=== PATIENT | male | born 1980 | race Caucasian/White ===

== ENCOUNTER 2016-10-21 12:43 | Emergency (ER) | payer MEDICAID, OTHER ==
[~2016-10-21] VITALS: Ht 190.5 cm; Wt 95.3 kg
[~2016-10-21 12:43] MED LIST: AMOX500C2 PO; AZIT-21 PO; BPR75T PO; BUSP10TA95 PO; CODE118S2 PO; DOXY-233 PO; HYDR-1231 PO; IBP800T PO; SULF1TAB38 PO; TRAZ150T42 PO
[2016-10-21] MEDS ORDERED: LIDOCAINE 1% INJ 20 ML (XYLOCAINE) VIAL ONE (12:49)
[2016-10-21] MEDS ORDERED: CEPH-507 PO (13:09)
--- NOTE | 2016-10-21 13:09 | ED Upper Extremity ---
General Chief Complaint: Laceration Stated Complaint: LACERATION TO RT WRIST Nursing Triage Note: WAS MOVING A GLASS TABLE WHEN IT BROKE LACERATION TO R WRIST. Nursing Sepsis Screen: No Definite Risk Source: patient Exam Limitations: no limitations History of Present Illness Time seen by provider: 13:04 Initial Comments to ER with laceration of the radial side of the right wrist. His occurred just prior to arrival he was loading a glass tabletop, the glass tabletop split in half and lacerated his wrist. He can still fully extend the right thumb. Tetanus was updated last year he states. Onset: just prior to arrival Severity: moderate Pain/Injury Location: right wrist Modifying Factors: Worse With Movement Allergies and Home Medications Allergies Coded Allergies: morphine (Unverified Allergy, Mild, VOMITING, 10/11/14) Home Medications Amoxicillin 500 Mg Capsule, 1 EACH PO TID, #20 Prescribed by: TANNER KUMAR on 10/11/14 0133 Hydrocodone Bit/Acetaminophen 1 Tab Tablet, 1-2 TAB PO Q6H PRN for PAIN, #10 Prescribed by: TANNER KUMAR on 10/11/14 0133 Constitutional: see HPI EENTM: see HPI Respiratory: no symptoms reported Cardiovascular: no symptoms reported Genitourinary: no symptoms reported Musculoskeletal: no symptoms reported Skin: see HPI Psychiatric/Neurological: No Symptoms Reported Past Smzfnph-Rxzjce-Visvtc Hx Patient Social History Alcohol Use: Denies Use Recreational Drug Use: No Smoking Status: Current Everyday Smoker Recent Foreign Travel: No Contact w/Someone Who Travel: No Recent Infectious Disease Expo: No Immunizations Up To Date Tetanus Booster (TDap): Less than 5yrs Date of Influenza Vaccine: Jan 07, 2014 Seasonal Allergies Seasonal Allergies: No Surgeries HX Surgeries: Yes Surgeries: Orthopedic Respiratory Hx Respiratory Disorders: No Cardiovascular Hx Cardiac Disorders: No Neurological Hx Neurological Disorders: No Reproductive System Hx Reproductive Disorders: No Sexually Transmitted Disease: No HIV/AIDS: No Genitourinary Hx Genitourinary Disorders: No Gastrointestinal Hx Gastrointestinal Disorders: No Musculoskeletal Hx Musculoskeletal Disorders: No Endocrine Hx Endocrine Disorders: No HEENT HX ENT Disorders: No Cancer Hx Cancer: No Psychosocial Hx Psychiatric Problems: No Integumentary HX Skin/Integumentary Disorder: No Blood Transfusions Hx Blood Disorders: No Physical Exam Vital Signs Vital Sign - Last 12Hours 10/21/16 12:57 Temp 98.0 Pulse 82 Resp 18 B/P (MAP) 141/82 Pulse Ox 98 O2 Delivery Room Air Capillary Refill : Less Than 3 Seconds General Appearance: WD/WN, no apparent distress HEENT: PERRL/EOMI, normal ENT inspection Neck: non-tender, full range of motion Respiratory: no respiratory distress, no accessory muscle use Gastrointestinal: non tender, soft Shoulder: normal inspection, non-tender Elbow/Forearm: normal inspection, non-tender, Right Wrist: Yes non-tender, Yes pain (there is a 1.5 cm laceration with depth down to the extensor tendon but not into or through the extensor tendon. He maintains full ability to extend the thumb as in thumbs up sign. Distally he is neurovascularly intact.) Neurologic/Psychiatric: alert, normal mood/affect, oriented x 3 Skin: normal color, warm/dry Laceration Repair : Wound Location: Upper Extremities Wound Length (cm): 1.5 Wound's Depth, Shape: sub Q Wound Explored: clean Irrigated w/ Saline (ccs): 50 Anesthesia: 1% Lidocaine Volume Anesthetic (ccs): 2 Suture: Prolene Suture Size: 5-0 Number of Sutures: 5 Layer Closure?: 1 Number Deep Layer Sutures: 0 Progress Wound anesthetized with 2 L 1 percent lidocaine without epinephrine. Wound then scrubbed with chlorhexidine/saline solution. Wound then irrigated with 40 mL of the same. Closed with 5 simple interrupted sutures size 5-0 Prolene. Progress/Results/Core Measures Results/Orders My Orders Orders - DAY PARIS APRN Lidocaine 1% Injection (Xylocaine 1% Inj (10/21/16 13:15) Cephalexin Capsule (Keflex Capsule) (10/21/16 13:15) Vital Signs/I&O Vital Sign - Last 12Hours 10/21/16 12:57 Temp 98.0 Pulse 82 Resp 18 B/P (MAP) 141/82 Pulse Ox 98 O2 Delivery Room Air Blood Pressure Mean: 101 Departure Impression Impression: Primary Impression: Laceration Disposition: 01 HOME, SELF-CARE Condition: Stable Departure-Patient Inst. Decision time for Depature: 13:08 Referrals: NO,LOCAL PHYSICIAN (PCP/Family) Primary Care Physician Patient Instructions: Laceration Repair With Stitches (DC) Add. Discharge Instructions: 1. You may allow water to run over the stitches starting tonight such as in the shower or under the sink but do not soak it in water such as a hot tub, bath tub, swimming pool until stitches of been removed. Return to ER for any sign of infection such as redness or swelling. He should return to the emergency room otherwise in 7-10 days to have the stitches removed. All discharge instructions reviewed with patient and/or family. Voiced understanding. Scripts Cephalexin (Keflex) 500 Mg Capsule 500 MG PO TID, #10 CAP Prov: DAY PARIS APRN 10/21/16 DAY PARIS APRN Oct 21, 2016 13:09
[2016-10-21 13:11] VITALS: BP 141/82
[2016-10-21] MEDS ORDERED: CEPHALEXIN 250 MG (KEFLEX) CAP PO ONE (13:15)
[2016-10-21] MEDS ORDERED: LIDOCAINE 1% INJ 20 ML (XYLOCAINE) VIAL INJ ONE (13:15)
--- OUTSIDE RECORDS SUMMARY | 2016-10-25 07:09 | XMS REPORT ---
Author Author LETHA NORTH Organization [employer] Address Unknown Phone Unavailable Care Team Providers Care Supervisor Nutritional Yeast Name Role Phone LETHA NORTH CP Unavailable Allergies, Adverse Reactions, Alerts Substance Reaction Event Type Morphine Sulfate vomitting Drug Allergy Problems Problem Type Condition Code Onset Dates Condition Status Problem Fever, unspecified 780.60 Active Problem Syncope and collapse 780.2 Active Problem Unspecified myalgia and myositis 729.1 Active Assessment Spider bite [id number] Active Problem Lumbago 724.2 Active Problem Postnasal drip 784.91 Active Problem Acute upper respiratory infections of unspecified site 465.9 Active Problem Other malaise and fatigue 780.79 Active Problem Nausea alone 787.02 Active Problem Diarrhea 787.91 Active Problem Intestinal infection due to other organism, NEC 008.8 Active Problem Acute bronchitis 466.0 Active Medications Medication Code System Code Instructions Start Date End Date Status Dosage Ibuprofen NDC 0 200 mg orally PRN 1 Bactrim DS NVC [address]-47 800-160 MG Orally 2 times a day Feb 26, 2015 Mar 08, 2015 1 tablet Procedures Procedure Coding System Code Date Office Visit, Est Pt., Level 3 CPT-4 05184 Feb 26, 2015 Vital Signs Date/Time: Feb 26, 2015 Temperature 98.5 F Weight 184.2 lbs Height 75 in BMI 23.02 Index Blood Pressure Diastolic 74 mmHg Blood Pressure Systolic 110 mmHg Cardiac Monitoring Heart Rate 64 bpm Results No Known Results Summary Purpose [employer] Submission
--- OUTSIDE RECORDS SUMMARY | 2016-10-25 07:09 | XMS REPORT ---
Author Author MALIK GUILLEN Organization [employer] Address Unknown Phone Unavailable Care Team Providers Care [employer] Tractor Operator Name Role Phone MALIK GUILLEN CP Unavailable Allergies, Adverse Reactions, Alerts Substance Reaction Event Type Morphine Sulfate vomitting Drug Allergy Problems Problem Type Condition ICD-9 Code Onset Dates Condition Status Problem Fever, unspecified 780.60 Active Problem Syncope and collapse 780.2 Active Problem Unspecified myalgia and myositis 729.1 Active Assessment Acute foreign body of ear canal 931 Active Problem Lumbago 724.2 Active Problem Postnasal drip 784.91 Active Problem Acute upper respiratory infections of unspecified site 465.9 Active Problem Other malaise and fatigue 780.79 Active Problem Nausea alone 787.02 Active Problem Diarrhea 787.91 Active Problem Intestinal infection due to other organism, NEC 008.8 Active Problem Acute bronchitis 466.0 Active Medications Medication Code System Code Instructions Start Date End Date Status Dosage Ofloxacin [facility] [address]-21 0.3 % Otic Once a day Dec 30, 2014 Jan 06, 2015 10 drops into affected ear Procedures Procedure Coding System Code Date Office Visit, Est Pt., Level 4 CPT-4 80031 Dec 30, 2014 EAR IRRIGATION CPT-4 30678 Dec 30, 2014 Vital Signs Date/Time: Dec 30, 2014 Temperature 97.0 F Weight 188.7 lbs Height 75 in BMI 23.58 Index Blood Pressure Diastolic 76 mmHg Blood Pressure Systolic 112 mmHg Cardiac Monitoring Heart Rate 70 bpm Results No Known Results Summary Purpose [employer] Submission
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
--- OUTSIDE RECORDS SUMMARY | 2016-10-25 07:09 | XMS REPORT ---
Author Author BURKE CORDOBA Organization [employer] Address Unknown Phone Unavailable Care Team Providers Care Navy Airspace Officer Name Role Phone BURKE CORDOBA CP Unavailable Allergies, Adverse Reactions, Alerts Substance Reaction Event Type Morphine Sulfate vomitting Drug Allergy Problems Problem Type Condition Code Onset Dates Condition Status Assessment Acute periumbilical pain R10.33 Active Assessment Nausea & vomiting R11.2 Active Problem Irritable bowel syndrome with diarrhea K58.0 Active Assessment Irritable bowel syndrome with diarrhea K58.0 Active Medications Medication Code System Code Instructions Start Date End Date Status Dosage Bentyl [facility] [address]-51 20 MG Orally 3 times a day May 27, 2015July 1 tablet Zofran [facility] [address]-20 4 MG Orally 2 times a day May 27, 2015 1 tablet Flagyl [facility] [address]-70 500 MG Orally every 12 hours May 27, 2015May 1 tablet Procedures Procedure Coding System Code Date Office Visit, Est Pt., Level 3 CPT-4 78851 May 27, 2015 Vital Signs Date/Time: May 27, 2015 Temperature 97.8 F Weight 177.4 lbs Height 75 in BMI 22.17 Index Blood Pressure Diastolic 60 mmHg Blood Pressure Systolic 102 mmHg Cardiac Monitoring Heart Rate 68 bpm Results No Known Results Summary Purpose eClinicalWorks Submission
== END 2016-10-21 13:11 | disposition home or self-care (01) ==
LOC: EDUNIT# 12:43 → ER 12:46
DX: S61.511A Laceration without foreign body of right wrist, initial encounter (principal); F17.200 Nicotine dependence, unspecified, uncomplicated; W25.XXXA Contact with sharp glass, initial encounter
CPT/HCPCS: 12011

== ENCOUNTER 2016-10-27 11:37 | Emergency (ER) | payer MEDICAID ==
[~2016-10-27] VITALS: Ht 190.5 cm; Wt 95.3 kg
[~2016-10-27 11:37] MED LIST changes: +CEPH-507 PO
--- OUTSIDE RECORDS SUMMARY | 2016-10-27 11:43 | XMS REPORT | Continuity of Care Document ---
Author Author [facility] Address Unknown Phone Unavailable Allergies Active Description Code Type Severity Reaction Onset Reported/Identified Relationship to Patient Clinical Status Yes morphin Drug Allergy 03/27/2012 Yes morphine [id number] Drug Allergy Mild VOMITING 10/11/2014 Medications Problems Date Dx Coded Attending Type Code Diagnosis Diagnosed By 03/27/2012 BARBARA PALENCIA DO 465.9 UPPER RESPIRATORY INFECTION 03/27/2012 BARBARA PALENCIA DO 784.91 POSTNASAL DRIP 03/27/2012 465.9 UPPER RESPIRATORY INFECTION 03/27/2012 784.91 POSTNASAL DRIP 03/27/2012 465.9 UPPER RESPIRATORY INFECTION 03/27/2012 784.91 POSTNASAL DRIP 03/27/2012 MLAIK GUILLEN APRN R 465.9 UPPER RESPIRATORY INFECTION [...] NEC 01/17/2013 WIN GUERRA MD Ot V06.1 [id number], COMBINED [ 01/27/2013 AURELIO CHILDERS, CHEVY Villanueva Ot V58.32 ENCOUNTER FOR REMOVAL OF SUTURES 02/10/2013 DAY PARIS AGENCY SERVICE COORDINATOR Ot 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 02/27/2013 MALIK GUILLEN [...] Ot E888.9 FALL NOS 10/21/2016 MALIK GUILLEN [facility] Ot 780.2 SYNCOPE AND COLLAPSE Procedures Code Description [place] [address] INFLUENZA A & B (IN-HOUSE) 04/24/2012 75311 ROUTINE VENIPUNCTURE 07/15/2013 06199 CBC 07/15/2013 51542 HEMOCCULT 2013 04317 HEMOCCULT 2013 49289 CULTURE STOOL 07/2013 17121 STOOL FOR POLYS & LEUKOCYTES 07/19/2013 0442839 STOOL FOR BACTERIAL PATHOGENS 07/21/2013 96125 STOOL FOR O & P 07/22/2013 95934 ROUTINE VENIPUNCTURE 11/12/2013 71286 UA LONG DIP 11/12 53213 URINE DRUG SCREEN (IN-HOUSE) 11/12/2013 76686 CBC 11/13/2013 [id number] GFR CALC (RESULT ONLY) 11/13/2013 29900 CMP 11/13/2013 34930 CBC 11/13/2013 Results Encounters ACCT No. Visit Date/Time Discharge Status Pt. Type Provider Facility Loc./Unit Complaint [id number] 11/13/2013 15:29:00 11/13/2013 23: 59:59 CLS Outpatient BARBARA PALENCIA DO [id number] 08/30/2013 12:11:00 08/30/2013 23: 59:59 CLS Outpatient MALIK GUILLEN APRN [id number] 07/31/2013 09:51:00 07/31/2013 23: 59:59 CLS Outpatient ALEXIS WREN APRN [id number] 07/19/2013 12:07:00 07/19/2013 23: 59:59 CLS Outpatient GYPSY RICARDO APRN [id number] 07/15/2013 11:32:00 07/15/2013 23: 59:59 CLS Outpatient GYPSY RICARDO APRN [id number] 02/27/2013 11:58:00 02/27/2013 23: 59:59 CLS Outpatient MALIK GUILLEN APRN [id number] 04/24/2012 13:43:00 04/24/2012 23: 59:59 CLS Outpatient [id number] 03/27/2012 14:18:39 03/27/2012 23: 59:59 CLS Outpatient BARBARA PALENCIA DO [id number] 11/08/2012 14:54:00 Document Registration [id number] 04/24/2012 15:37:43 RECURRING
[2016-10-27 11:50] VITALS: BP 140/90
== END 2016-10-27 11:50 | disposition home or self-care (01) ==
LOC: EDUNIT# 11:37 → ER 11:39
DX: S51.811D Laceration without foreign body of right forearm, subsequent encounter (principal)

== ENCOUNTER 2017-01-30 21:52 | Emergency (ER) | payer MEDICAID ==
[~2017-01-30] VITALS: Ht 190.5 cm; Wt 77.1 kg
[2017-01-30 23:09] VITALS: BP 129/98
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
[2017-01-31] MEDS ORDERED: HYDROcodone/APAP 10 MG/325 MG (LORTAB) TAB PO STA (00:46)
[2017-01-31 01:07] LABS: BILIRUBIN,URINE NEGATIVE (NEGATIVE); KETONES,URINE NEGATIVE (NEGATIVE); LEUKOCYTE ESTERASE ,URINE 3+ (NEGATIVE); NITRITE,URINE NEGATIVE (NEGATIVE); PH,URINE 6 (5-9); PROTEIN,URINE NEGATIVE (NEGATIVE); UROBILINOGEN,URINE NORMAL (NORMAL)
[2017-01-31 01:20] LABS: CALCIUM OXALATE CRYSTALS,UR RARE /LPF; SQUAMOUS EPITHELIAL CELL,UR RARE /HPF; WBC,URINE 25-50 /HPF
[2017-01-31] MEDS ORDERED: LIDOCAINE 1% INJ 20 ML (XYLOCAINE) VIAL INJ ONE (02:15)
[2017-01-31] MEDS ORDERED: AZITHROMYCIN 250 MG TAB (ZITHROMAX) PO ONE (02:15)
[2017-01-31] MEDS ORDERED: cefTRIAXone 250 MG (ROCEPHIN) VIAL IM ONE (02:15)
[2017-01-31] MEDS ORDERED: LIDOCAINE 2% VISCOUS 15 ML UDC PO ONE (03:00)
--- NOTE | 2017-01-31 07:34 | Diagnostic Imaging Report ---
INDICATION: Left testicular pain. FINDINGS: The left testicle measures 3.9 x 2.9 x 3 cm. Right testicle measures 4.2 x 2.2 x 2.9 cm. Testicles are homogeneous without evidence of mass. There is normal blood flow to both testes. There is diffuse edema of the left epididymis with hypervascularity. There is a 3 cm cyst in the head of the epididymis. There are small bilateral hydroceles. IMPRESSION: 1. No evidence of testicular torsion. 2. Finding consistent with epididymitis of the left epididymides. There is a rather large cyst in the head of the epididymis as well. 3. Bilateral small hydroceles. Dictated by: Dictated on workstation # [id number]
[2017-02-01 15:55] LABS: CHLAMYDIA DNA URINE Not Detected (Not Detected); NEISSERIA GONORRHEA DNA URINE Detected (Not Detected)
== END 2017-01-31 03:11 | disposition home or self-care (01) ==
LOC: EDUNIT# 21:52 → ER 21:53
DX: N45.1 Epididymitis (principal); F17.210 Nicotine dependence, cigarettes, uncomplicated
CPT/HCPCS: 36415; 76870; 80306; 81000; 87088; 87491; 87591; 99282

== ENCOUNTER 2017-04-12 07:21 | Inpatient (IN) | payer MEDICAID ==
[~2017-04-12] VITALS: Ht 188 cm; Wt 76.2 kg
--- OUTSIDE RECORDS SUMMARY | 2017-04-12 07:27 | XMS REPORT | Continuity of Care Document ---
Author Author [facility] Address Unknown Phone Unavailable Allergies Active Description Code Type Severity Reaction Onset Reported/Identified Relationship to Patient Clinical Status Yes morphin Drug Allergy 03/27/2012 Yes morphine [id number] Drug Allergy Mild VOMITING 10/11/2014 Medications There is no data. Problems Date Dx Coded Attending Type Code Diagnosis Diagnosed By 03/27/2012 BARBARA PALENCIA DO 465.9 UPPER RESPIRATORY INFECTION 03/27/2012 BARBARA PALENCIA DO 784.91 POSTNASAL DRIP 03/27/2012 465.9 UPPER RESPIRATORY INFECTION 03/27/2012 784.91 POSTNASAL DRIP 03/27/2012 465.9 UPPER RESPIRATORY INFECTION 03/27/2012 784.91 POSTNASAL DRIP 03/27/2012 PANCHO GUILLEN APRNIA R 465.9 UPPER RESPIRATORY INFECTION 03/27/2012 COBY GUILLEN APRNRICIA R 784.91 POSTNASAL DRIP 03/27/2012 DAVIONMICHAEL FLORES APRNNDA S 465.9 UPPER RESPIRATORY INFECTION 03/27/2012 DAVIONSANDRA STYLES, GYPSY S 784.91 POSTNASAL DRIP 03/27/2012 DAVIONSANDRA STYLES GYPSY S 465.9 UPPER RESPIRATORY INFECTION 03/27/2012 DAVIONSANDRA STYLES GYPSY S 784.91 POSTNASAL DRIP 03/27/2012 ALEXIS WREN APRN 465.9 UPPER RESPIRATORY INFECTION 03/27/2012 ALEXIS WREN APRN 784.91 POSTNASAL DRIP 03/27/2012 MALIK GUILLEN APRN R 465.9 UPPER RESPIRATORY INFECTION 03/27/2012 MALIK GUILLEN APRN R 784.91 POSTNASAL DRIP 03/27/2012 BARBARA PALENCIA DO 465.9 UPPER RESPIRATORY INFECTION 03/27/2012 BARBARA PALENCIA DO 784.91 POSTNASAL DRIP 04/24/2012 780.79 MALAISE 04/24/2012 780.79 MALAISE 04/24/2012 COBY GUILLEN APRNRICIA R 780.79 MALAISE 04/24/2012 DAVION STYLES GYPSY S 780.79 MALAISE 04/24/2012 MICHAEL RICARDO APRNNDA S 780.79 MALAISE 04/24/2012 ALEXIS WREN APRN T 780.79 MALAISE 04/24/2012 COBY GUILLEN APRNRICIA R 780.79 MALAISE 04/24/2012 PALENCIA DO, BARBARA K 780.79 MALAISE 11/08/2012 780.2 SYNCOPE 11/08/2012 787.91 DIARRHEA 11/08/2012 COBY GUILLEN APRNRICIA R 780.2 SYNCOPE 11/08/2012 COBY GUILLEN APRNRICIA R 787.91 DIARRHEA 11/08/2012 DAVION STYLES GYPSY S 780.2 SYNCOPE 11/08/2012 DAVION STYLES GYPSY S 787.91 DIARRHEA 11/08/2012 DAVION STYLES GYPSY S 780.2 SYNCOPE 11/08/2012 DAVION [...] NEC 01/17/2013 WIN GUERRA MD Ot V06.1 [id number], COMBINED [ 01/27/2013 AURELIO CHILDERS, CHEVY Villanueva Ot V58.32 ENCOUNTER FOR REMOVAL OF SUTURES 02/10/2013 [employer] SOFTWARE SUPPORT ANALYST Ot 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 02/27/2013 MALIK GUILLEN APRN R 008.8 GASTROENTERITIS, VIRAL 02/27/2013 GYPSY RICARDO APRN S 008.8 GASTROENTERITIS, VIRAL 02/27/2013 GYPSY RICARDO APRN S 008.8 GASTROENTERITIS, VIRAL 02/27/2013 ALEXIS WREN APRN 008.8 GASTROENTERITIS, VIRAL 02/27/2013 MALIK GUILLEN APRN R 008.8 GASTROENTERITIS, VIRAL 02/27/2013 BARBARA PALENCIA DO K 008.8 GASTROENTERITIS, VIRAL 07/15/2013 GYPSY RICARDO APRN S 724.2 BACK [...] GUILLEN APRN R 787.02 NAUSEA ALONE 08/30/2013 OMERO PALENCIA DOA K 787.02 NAUSEA ALONE 11/12/2013 BARBARA PALENCIA [...] Ot E888.9 FALL NOS 10/21/2016 MALIK GUILLEN Ot 780.2 SYNCOPE AND COLLAPSE 10/21/2016 [employer] SUPPORT ANALYST Ot F17.200 NICOTINE DEPENDENCE, UNSPECIFIED, UNCOMP 10/21/2016 [employer] SOFTWARE SUPPORT ANALYST Ot S61.511A LACERATION WITHOUT FOREIGN BODY OF RIGHT 10/21/2016 [employer] SOFTWARE SUPPORT ANALYST Ot W25.XXXA CONTACT WITH [place], INITIAL ENCOUN 10/27/2016 CHEVY CAREY MD Ot S51.811D LACERATION W/O FOREIGN BODY OF RIGHT FOR 10/28/2016 CHEVY CAREY MD Ot S51.811D LACERATION W/O FOREIGN BODY OF RIGHT FOR 01/31/2017 MELITA GAFFNEY MD Ot F17.210 NICOTINE DEPENDENCE, CIGARETTES, UNCOMPL 01/31/2017 MELITA GAFFNEY MD Ot N45.1 EPIDIDYMITIS 01/31/2017 MELITA GAFFNEY MD Ot N50.812 LEFT TESTICULAR PAIN 01/31/2017 Ot 959.7 LOWER LEG INJURY NOS 01/31/2017 Ot E888.9 FALL NOS 01/31/2017 MALIK GUILLEN Ot 780.2 SYNCOPE AND COLLAPSE 02/01/2017 MELITA GAFFNEY MD Ot F17.210 NICOTINE DEPENDENCE, CIGARETTES, UNCOMPL 02/01/2017 MELITA GAFFNEY MD Ot N45.1 EPIDIDYMITIS 02/01/2017 MELITA GAFFNEY MD Ot N50.812 LEFT TESTICULAR PAIN 03/02/2017 Ot 959.7 LOWER LEG INJURY NOS 03/02/2017 Ot E888.9 FALL NOS 03/02/2017 MALIK GUILLEN Ot 780.2 SYNCOPE AND COLLAPSE Procedures Code Description [place] [address] INFLUENZA A & B (IN-HOUSE) 04/24/2012 22063 ROUTINE VENIPUNCTURE 07/15/2013 64784 CBC 07/15/2013 19060 HEMOCCULT 07/19/2013 79749 HEMOCCULT 07/19/2013 82698 CULTURE STOOL 07/19/2013 26802 STOOL FOR POLYS & LEUKOCYTES 07/19/2013 3367150 STOOL FOR BACTERIAL PATHOGENS 07/21/2013 82887 STOOL FOR O & P 07/22/2013 72713 ROUTINE VENIPUNCTURE 11/12/2013 51027 UA LONG DIP 11/12/2013 02273 URINE DRUG SCREEN (IN-HOUSE ) 11/12/2013 69325 CBC 11/13/20130303825 GFR CALC (RESULT ONLY) 11/13/2013 32132 CMP 11/13/2013 96996 CBC 11/13/2013 Results Test Result Range Complete urinalysis with reflex to culture - 01/31/17 00:54 Urine color determination YELLOW NRG Urine clarity determination SLIGHTLY CLOUDY NRG Urine pH measurement by test strip 6 5-9 Specific gravity of urine by test strip 1.015 1.016- 1.022 Urine protein assay by test strip, semi-quantitative NEGATIVE NEGATIVE Urine glucose detection by automated test strip NEGATIVE NEGATIVE Erythrocytes detection in urine sediment by light microscopy 5+ NEGATIVE Urine ketones detection by automated test strip NEGATIVE NEGATIVE Urine nitrite detection by test strip NEGATIVE NEGATIVE Urine total bilirubin detection by test strip NEGATIVE NEGATIVE Urine urobilinogen measurement by automated test strip (mass/volume) NORMAL NORMAL Urine leukocyte esterase detection by dipstick 3+ NEGATIVE Automated urine sediment erythrocyte count by microscopy (number/high power field) [HPF] NRG Automated urine sediment leukocyte count by microscopy (number/high power field ) [HPF] NRG Bacteria detection in urine sediment by light microscopy TRACE NRG Squamous epithelial cells detection in urine sediment by light microscopy RARE NRG Crystals detection in urine sediment by light microscopy PRESENT NRG Casts detection in urine sediment by light microscopy NONE NRG Mucus detection in urine sediment by light microscopy NEGATIVE NRG Complete urinalysis with reflex to culture YES NRG Calcium oxalate crystals detection in urine sediment by light microscopy RARE NRG Urine drug screening test - 01/31/17 00:54 Urine phencyclidine detection by screening method NEGATIVE NEGATIVE Urine benzodiazepines detection by screening method NEGATIVE NEGATIVE Urine cocaine detection NEGATIVE NEGATIVE Urine amphetamines detection by screening method POSITIVE NEGATIVE Urine methamphetamine detection by screening method POSITIVE NEGATIVE Urine cannabinoids detection by screening method NEGATIVE NEGATIVE Urine opiates detection by screening method NEGATIVE NEGATIVE Urine barbiturates detection NEGATIVE NEGATIVE Screening urine tricyclic antidepressants detection NEGATIVE NEGATIVE Urine methadone detection by screening method NEGATIVE NEGATIVE Urine oxycodone detection NEGATIVE NEGATIVE Urine propoxyphene detection NEGATIVE NEGATIVE Bacterial urine culture - 01/31/17 00:54 Bacterial urine culture NG NRG Chlamydia DNA amp probe, urine - 01/31/17 00:54 Chlamydia DNA amp probe, urine Not Detected Not Detected Urine Neisseria gonorrhoeae DNA assay - 01/31/17 00:54 Gonorrhea amp DNA-urine Detected Not Detected Encounters ACCT No. Visit Date/Time Discharge Status Pt. Type Provider Facility Loc./Unit Complaint [id number] 11/13/2013 15:29:00 11/13/2013 23:59:59 CLS Outpatient BARBARA PALENCIA DO [id number] 08/30/2013 12:11:00 08/30/2013 23:59:59 CLS Outpatient MALIK GUILLEN APRN [id number] 07/31/2013 09:51:00 07/31/2013 23:59:59 CLS Outpatient ALEXIS WREN APRN [id number] 07/19/2013 12:07:00 07/19/2013 23:59:59 CLS Outpatient GYPSY RICARDO APRN [id number] 07/15/2013 11:32:00 07/15/2013 23:59:59 CLS Outpatient GYPSY RICARDO APRN [id number] 02/27/2013 11:58:00 02/27/2013 23:59:59 CLS Outpatient MALIK GUILLEN APRN [id number] 04/24/2012 13:43:00 04/24/2012 23:59:59 CLS Outpatient [id number] 03/27/2012 14:18:39 03/27/2012 23:59:59 CLS Outpatient PALENCIA BARBARA ALLEN [id number] 11/08/2012 14:54:00 Document Registration [id number] 04/24/2012 15:37:43 RECURRING [id number] 01/30/2017 21:53:00 01/31/2017 03:11:00 DIS Emergency MELITA GAFFNEY MD [facility] ER L TESTICLE SWELLING/ DENTAL PAIN [id number] 10/27/2016 11:39:00 10/27/2016 11:50:00 DIS Emergency CHEVY CAREY MD [facility] ER REMOVAL OF STITCHES/WOUND CHECK [id number] 10/21/2016 12:46:00 10/21/2016 13:11:00 DIS Emergency [employer] SUPPORT ANALYST [facility] ER LACERATION TO RT WRIST [id number] 10/11/2014 00:34:00 10/11/2014 01:36:00 DIS Emergency JOSÉ CHILDERS, TANNER Gil [facility] ER DENTAL PAIN [id number] 02/10/2013 11:57:00 02/10/2013 12:59:00 DIS Emergency [employer] APRN [facility] ER WOUND CHECK [id number] 01/27/2013 12:35:00 01/27/2013 12:48:00 DIS Emergency AURELIO CHILDERS, CHEVY Villanueva [facility] ER SUTURE REMOVAL [id number] 01/17/2013 00:25:00 01/17/2013 01:04:00 DIS Emergency CHARLIE CHILDERS, WIN Galvan [facility] ER LFT ARM LAC [id number] 11/09/2012 09:04:00 11/09/2012 23:59:59 CLS Outpatient MALIK GUILLEN [facility] RAD SYNCOPE [id number] 06/23/2014 10:48:00 Document Registration [id number] 12/27/2011 16:36:00 Document Registration
[2017-04-12] MEDS: LIDOCAINE 1% INJ 50 ML (XYLOCAINE) VIAL ONE ×2 (07:47→08:23)
[2017-04-12] MEDS ORDERED: fentaNYL INJECTION 100 MCG/2 ML AMP IVP ONE (08:15)
[2017-04-12 08:28] LABS: BACTERIA,URINE TRACE /HPF; BILIRUBIN,URINE NEGATIVE (NEGATIVE); CLARITY,URINE CLEAR; COLOR,URINE YELLOW; GLUCOSE, URINE (UA) 4+ (NEGATIVE); KETONES,URINE 1+ (NEGATIVE); LEUKOCYTE ESTERASE ,URINE 3+ (NEGATIVE); NITRITE,URINE NEGATIVE (NEGATIVE); PH,URINE 6 (5-9); PROTEIN,URINE 2+ (NEGATIVE); RBC,URINE 0-2 /HPF; UROBILINOGEN,URINE 1 MG/DL (NORMAL); WBC,URINE >100 /HPF
[2017-04-12 08:39] LABS: BASOPHILS % (AUTO) 0 % (0-10); EOSINOPHILS % (AUTO) 0 % (0-10); HEMATOCRIT 46 % (40-54); HEMOGLOBIN 15.3 G/DL (13.3-17.7); LYMPHOCYTES # (AUTO) 1.9 X 10^3 (1.0-4.0); LYMPHOCYTES % (AUTO) 15 % (12-44); MEAN CORPUSCULAR HEMOGLOBIN 32 PG (25-34); MEAN CORPUSCULAR HGB CONC 33 G/DL (32-36); MEAN CORPUSCULAR VOLUME 96 FL (80-99); MEAN PLATELET VOLUME 9.4 FL (7.4-10.4); MONOCYTES # (AUTO) 1.2 X 10^3 (0.0-1.0); MONOCYTES % (AUTO) 9 % (0-12); NEUTROPHILS # (AUTO) 9.5 X 10^3 (1.8-7.8); NEUTROPHILS % (AUTO) 75 % (42-75); PLATELET COUNT 186 10^3/uL (130-400); RED BLOOD COUNT 4.79 10^6/uL (4.35-5.85); RED CELL DISTRIBUTION WIDTH 13.5 % (10.0-14.5); WHITE BLOOD COUNT 12.7 10^3/uL (4.3-11.0)
[2017-04-12 08:57] LABS: AMPHETAMINE SCREEN, URINE POSITIVE (NEGATIVE); BARBITURATE SCREEN URINE NEGATIVE (NEGATIVE); BENZODIAZEPINES SCREEN URINE NEGATIVE (NEGATIVE); CANNABINOID SCREEN, URINE POSITIVE (NEGATIVE); COCAINE SCREEN URINE NEGATIVE (NEGATIVE); METHADONE STAT NEGATIVE (NEGATIVE); METHAMPHETAMINE SCREEN URINE S POSITIVE (NEGATIVE); OPIATE SCREEN URINE NEGATIVE (NEGATIVE); OXYCODONE STAT NEGATIVE (NEGATIVE); PROPOXYPHENE STAT NEGATIVE (NEGATIVE); TRICYCLIC ANTIDEPRESSANTS SCRE NEGATIVE (NEGATIVE)
[2017-04-12 09:00] LABS: ALANINE AMINOTRANSFERASE 20 U/L (0-55); ALBUMIN 4.1 GM/DL (3.2-4.5); ALKALINE PHOSPHATASE 65 U/L (40-136); BUN/CREATININE RATIO 15; CALCIUM 9.1 MG/DL (8.5-10.1); CARBON DIOXIDE 21 MMOL/L (21-32); CHLORIDE 100 MMOL/L (98-107); CREATININE SERUM 1.24 MG/DL (0.60-1.30); GFR ESTIMATED > 60; GLUCOSE 149 MG/DL (70-105); POTASSIUM 4.2 MMOL/L (3.6-5.0); SODIUM 133 MMOL/L (135-145); TOTAL PROTEIN 7.3 GM/DL (6.4-8.2)
--- NOTE | 2017-04-12 09:17 | Diagnostic Imaging Report ---
INDICATION: Right-sided flank pain. Hematuria. COMPARISON: 06/23/2014 FINDINGS: Single frontal radiographic view of the chest was obtained and shows normal cardiac silhouette and pulmonary vasculature. Evaluation of lung fernández suggest 1 cm nodular opacity in the lateral left mid to lower lung field. Otherwise, lungs are clear. There is no large effusion or pneumothorax on either side. Bony structures show no gross acute abnormalities. IMPRESSION: 1. No evidence of failure or focal infiltrate. 2. Probable nipple shadow on the left. True soft tissue pulmonary nodule cannot be excluded. Repeating chest radiograph with nipple markers is recommended. Dictated by: Dictated on workstation # [id number]
--- NOTE | 2017-04-12 09:31 | Diagnostic Imaging Report ---
Scrotal ultrasound. INDICATION: Right scrotal redness and swelling. FINDINGS: The right testicle is 4.4 x 2.7 x 3.1 cm. The left testicle is 4.5 x 2.3 x 2.5 cm. There is hyperemia and swelling in the right epididymis and moderate right hydrocele compatible with epididymitis. Scrotal wall thickening is also seen compatible with inflammation or infection extension into the subcutaneous tissues, cellulitis. No solid mass within the testicles is seen. There is an epididymal head simple cyst measuring 3.0 x 1.0 x 2.6 cm on the left. IMPRESSION: Findings compatible with right epididymitis with inflammation and soft tissue thickening extending to the scrotal wall on the right side. Moderate right hydrocele. Dictated by: Dictated on workstation # [id number]
--- NOTE | 2017-04-12 09:36 | ED General ---
General Chief Complaint: Back Problems Stated Complaint: KIDNEYS HURT Nursing Triage Note: PT AMBULATED TO ROOM 10 CO OF R SIDE, FLANK AND TESTICLE PAIN FOR 5 DAYS, STATES"PISSED BLOOD" A COUPLE DAYS AGO AND QUIT THOT BETTER NO HURTING, PT HYPERVENTILATING AT THIS X. Nursing Sepsis Screen: No Definite Risk Source of Information: Patient Exam Limitations: No Limitations History of Present Illness Time Seen by Provider: 07:41 Initial Comments This 36 year old man presents to the ER with at least 5 days of pain in the right flank, abdomen and right testicle. He reports hematuria 3 days ago. He generally feels ill he is nauseated but has not vomited. He is afebrile. He is hyperventilating on assessment. He admits to recent methamphetamine and marijuana use. On assessment he has an enlarged scrotum that is scarlet in color. Allergies and Home Medications Allergies Coded Allergies: morphine (Unverified Allergy, Mild, VOMITING, 10/11/14) Home Medications No Active Prescriptions or Reported Meds Constitutional: no symptoms reported EENTM: no symptoms reported Respiratory: no symptoms reported Cardiovascular: no symptoms reported Gastrointestinal: see HPI Genitourinary: see HPI Musculoskeletal: no symptoms reported Skin: see HPI Psychiatric/Neurological: No Symptoms Reported Hematologic/Lymphatic: No Symptoms Reported Immunological/Allergic: no symptoms reported Past Uajayvi-Hqcawp-Jzqfzp Hx Patient Social History Alcohol Use: Denies Use Recreational Drug Use: Yes (METH AND POT) Drug of Choice: cannibus, methamphetamines Type Used: Cigarettes 2nd Hand Smoke Exposure: Yes Recent Foreign Travel: No Contact w/Someone Who Travel: No Recent Infectious Disease Expo: No Recent Hopitalizations: No Physical Abuse: No Sexual Abuse: No Immunizations Up To Date Tetanus Booster (TDap): Unknown Date of Influenza Vaccine: Jan 07, 2014 Seasonal Allergies Seasonal Allergies: No Surgeries History of Surgeries: Yes Surgeries: Orthopedic Respiratory History of Respiratory Disorde: No Cardiovascular History of Cardiac Disorders: No Neurological History of Neurological Disord: No Reproductive System Hx Reproductive Disorders: No Sexually Transmitted Disease: No HIV/AIDS: No Genitourinary History of Genitourinary Disor: No Gastrointestinal History of Gastrointestinal Di: No Musculoskeletal History of Musculoskeletal Dis: No Endocrine History of Endocrine Disorders: No HEENT History of HEENT Disorders: No Cancer History of Cancer: No Psychosocial History of Psychiatric Problem: No Suicide Risk Score: 0 Integumentary History of Skin or Integumenta: No Blood Transfusions History of Blood Disorders: No Family Medical History Significant Family History: No Pertinent Family Hx Physical Exam Vital Signs Vital Sign - Last 12Hours 04/12/17 04/12/17 08:05 11:25 Temp 97.5 Pulse 104 Resp 24 B/P (MAP) 128/99 (109) Pulse Ox 100 O2 Delivery Room Air Capillary Refill : Less Than 3 Seconds General Appearance: WD/WN, Moderate Distress HEENT: PERRL/EOMI, Normal ENT Inspection, Pharynx Normal Neck: Normal Inspection Respiratory: Lungs Clear, Normal Breath Sounds, No Accessory Muscle Use, No Respiratory Distress Cardiovascular: No Edema, No Murmur, Normal Peripheral Pulses, Tachycardia Gastrointestinal: Normal Bowel Sounds, Guarding, Tenderness (throughout the right abdomen and right groin) Genital/Rectal: Tenderness, Other (tightly edematous scrotum with bright red erythema) Extremity: Normal Inspection, No Pedal Edema Neurologic/Psychiatric: Alert, Oriented x3, No Motor/Sensory Deficits, Normal Mood/Affect, negotiator II-XII Norm as Tested Skin: Warm/Dry, Erythema Focused Exam Evaluation Lactate Level Laboratory Tests 04/12/17 08:30: Lactic Acid Level 2.37*H 04/12/17 10:35: Lactic Acid Level 0.65 Lactic Acid Level Laboratory Tests Test 04/12/17 10:35 Lactic Acid Level 0.65 MMOL/L (0.50-2.00) Laceration Repair : Suture Size: 5-0 Progress/Results/Core Measures Suspected Sepsis Recent Fever Within 48 Hours: No Infection Criteria Present: None New/Unexplained Altered Menta: No Sepsis Screen: No Definite Risk Sepsis Diagnosis: SIRS Temperature:97.5 Pulse: 104 Respiratory Rate: 24 Laboratory Tests 04/12/17 08:30: White Blood Count 12.7H Blood Pressure 128 /99 Mean: 109 Laboratory Tests 04/12/17 08:30: Lactic Acid Level 2.37*H 04/12/17 10:35: Lactic Acid Level 0.65 Laboratory Tests 04/12/17 08:30: Creatinine 1.24, Platelet Count 186, Total Bilirubin 1.0 Results/Orders Lab Results Laboratory Tests Test 04/12/17 08:05 04/12/17 08:30 04/12/17 10:35 Range/Units Urine Color YELLOW Urine Clarity CLEAR Urine pH 6 5-9 Urine Specific [place] 1.020 1.016-1.022 Urine Protein 2+ H NEGATIVE Urine Glucose (UA) 4+ H NEGATIVE Urine Ketones 1+ H NEGATIVE Urine Nitrite NEGATIVE NEGATIVE Urine Bilirubin NEGATIVE NEGATIVE Urine Urobilinogen 1 NORMAL MG/DL Urine Leukocyte Esterase 3+ H NEGATIVE Urine RBC (Auto) 2+ H NEGATIVE Urine RBC 0-2 /HPF Urine WBC >100 H /HPF Urine Crystals NONE /LPF Urine Bacteria TRACE /HPF Urine Casts NONE /LPF Urine Mucus NEGATIVE /LPF Urine Culture Indicated YES Urine Opiates Screen NEGATIVE NEGATIVE Urine Oxycodone Screen NEGATIVE NEGATIVE Urine Methadone Screen NEGATIVE NEGATIVE Urine Propoxyphene Screen NEGATIVE NEGATIVE Urine Barbiturates Screen NEGATIVE NEGATIVE Ur Tricyclic Antidepressants Screen NEGATIVE NEGATIVE Urine Phencyclidine Screen NEGATIVE NEGATIVE Urine Amphetamines Screen POSITIVE H NEGATIVE Urine Methamphetamines Screen POSITIVE H NEGATIVE Urine Benzodiazepines Screen NEGATIVE NEGATIVE Urine Cocaine Screen NEGATIVE NEGATIVE Urine Cannabinoids Screen POSITIVE H NEGATIVE White Blood Count 12.7 H 4.3-11.0 10^3/uL Red Blood Count 4.79 4.35-5.85 10^6/uL Hemoglobin 15.3 13.3-17.7 G/DL Hematocrit 46 40-54 % Mean Corpuscular Volume 96 80-99 FL Mean Corpuscular Hemoglobin 32 25-34 PG Mean Corpuscular Hemoglobin Concent 33 32-36 G/DL Red Cell Distribution Width 13.5 10.0-14.5 % Platelet Count 186 130-400 10^3/uL Mean Platelet Volume 9.4 7.4-10.4 FL Neutrophils (%) (Auto) 75 42-75 % Lymphocytes (%) (Auto) 15 12-44 % Monocytes (%) (Auto) 9 0-12 % Eosinophils (%) (Auto) 0 0-10 % Basophils (%) (Auto) 0 0-10 % Neutrophils # (Auto) 9.5 H 1.8-7.8 X 10^3 Lymphocytes # (Auto) 1.9 1.0-4.0 X 10^3 Monocytes # (Auto) 1.2 H 0.0-1.0 X 10^3 Eosinophils # (Auto) 0.0 0.0-0.3 10^3/uL Basophils # (Auto) 0.0 0.0-0.1 10^3/uL Sodium Level 133 L 135-145 MMOL/L Potassium Level 4.2 3.6-5.0 MMOL/L Chloride Level 100 98-107 MMOL/L Carbon Dioxide Level 21 21-32 MMOL/L Anion Gap 12 5-14 MMOL/L Blood Urea Nitrogen 19 H 7-18 MG/DL Creatinine 1.24 0.60-1.30 MG/DL Estimat Glomerular Filtration Rate > 60 BUN/Creatinine Ratio 15 Glucose Level 149 H 70-105 MG/DL Lactic Acid Level 2.37 *H 0.65 0.50-2.00 MMOL/L Calcium Level 9.1 8.5-10.1 MG/DL Total Bilirubin 1.0 0.1-1.0 MG/DL Aspartate Amino Transf (AST/SGOT) 23 5-34 U/L Alanine Aminotransferase (ALT/SGPT) 20 0-55 U/L Alkaline Phosphatase 65 40-136 U/L C-Reactive Protein High Sensitivity 14.07 H 0.00-0.50 MG/DL Total Protein 7.3 6.4-8.2 GM/DL Albumin 4.1 3.2-4.5 GM/DL My Orders Orders - DELILAH BLACK MD Ua Culture If Indicated (04/12/17 07:41) Lidocaine 1% (Xylocaine 1%) (04/12/17 07:41) Cbc With Automated Diff (04/12/17 08:13) Comprehensive Metabolic Panel (04/12/17 08:13) Hs C Reactive Protein (04/12/17 08:13) Drug Screen Stat (Urine) (04/12/17 08:13) Lactic Acid Analyzer (04/12/17 08:13) Chest 1 View, Ap/Pa Only (04/12/17 08:13) Chlamydia Dna Urine Test (04/12/17 08:13) Neis Bharath Dna Urine Test (04/12/17 08:13) Us Scrotum (Testicle) [id number] (04/12/17 08:13) Blood Culture (04/12/17 08:13) Fentanyl Injection (Sublimaze Injection (04/12/17 08:15) Urine Culture (04/12/17 08:05) Chest 1 View, Ap/Pa Only (04/12/17 09:33) Ceftriaxone Injection (Rocephin Injectio (04/12/17 09:45) Ketorolac Injection (Toradol Injection) (04/12/17 09:45) Ns Iv 1000 Ml (Sodium Chloride 0.9%) (04/12/17 09:39) Medications Given in ED Current Medications Medications Dose Ordered Sig/Malcom Route Start Time Stop Time Status Last Admin Dose Admin Ceftriaxone Sodium 1000 mg/ Sodium Chloride 50 ml @ 100 mls/hr ONCE ONCE IV 04/12/17 09:45 04/12/17 10:14 DC 04/12/17 09:50 100 MLS/HR Fentanyl Citrate 100 mcg ONCE ONCE IVP 04/12/17 08:15 04/12/17 08:17 DC 04/12/17 08:29 100 MCG Ketorolac Tromethamine 30 mg ONCE ONCE IVP 04/12/17 09:45 04/12/17 09:46 DC 04/12/17 09:51 30 MG Sodium Chloride 1,000 ml @ 0 mls/hr Q0M ONCE IV 04/12/17 09:39 04/12/17 09:40 DC 04/12/17 09:51 1,000 MLS/HR Vital Signs/I&O Vital Sign - Last 12Hours 04/12/17 04/12/17 04/12/17 08:05 09:51 11:25 Temp 97.5 97.5 98.0 Pulse 104 89 Resp 24 20 B/P (MAP) 128/99 (109) 103/71 (82) Pulse Ox 100 100 O2 Delivery Room Air Capillary Refill : Less Than 3 Seconds Blood Pressure Mean: 109 Progress Note : Progress Note There is concern for sepsis given the cellulitis of the scrotum, tachycardia, and leukocytosis. Patient was started on IV fluids with a liter bolus. Scrotal ultrasound demonstrated epididymitis. After blood cultures and lactic acid were drawn, antibiotic therapy was started with Rocephin. Dr. Gama was unavailable for consultation. Dr. Millicent Adan excepts admission. Fentanyl was used for initial pain management prior to ultrasound. Toradol was given for further pain management. Diagnostic Imaging Diagonstic Imaging: Ultrasound Plain Films/CT/US/NM/MRI: other (scrotum) Comments NAME: [facility] REC#: [id number] PT STATUS: REG ER : 1980 PHYSICIAN: DELILAH BLACK MD ADMIT DATE: 04/12/17/ER Draft Date of Exam:04/12/17 US SCROTUM (Testicle) [id number] Scrotal ultrasound. INDICATION: Right scrotal redness and swelling. FINDINGS: The right testicle is 4.4 x 2.7 x 3.1 cm. The left testicle is 4.5 x 2.3 x 2.5 cm. There is hyperemia and swelling in the right epididymis and moderate right hydrocele compatible with epididymitis. Scrotal wall thickening is also seen compatible with inflammation or infection extension into the subcutaneous tissues, cellulitis. No solid mass within the testicles is seen. There is an epididymal head simple cyst measuring 3.0 x 1.0 x 2.6 cm on the left. IMPRESSION: Findings compatible with right epididymitis with inflammation and soft tissue thickening extending to the scrotal wall on the right side. Moderate right hydrocele. Dictated on workstation # [id number] Dict: 04/12/17 0910 Trans: 04/12/17 0930 [id number] Interpreted by: VALENTINA RUBIO MD Departure Communication (Admissions) Time/Spoke to Admitting Phy: 10:[address] Adan Impression Impression: Primary Impression: Sepsis Qualified Codes: A41.9 - Sepsis, unspecified organism Additional Impressions: Cellulitis, scrotum Epididymitis Polysubstance abuse Disposition: 01 HOME, SELF-CARE Condition: Improved Admissions Decision to Admit Reason: Admit from ER (General) Decision to Admit/Date: Apr 12, 2017 Time/Decision to Admit Time: 10:20 Departure-Patient Inst. Referrals: NO,LOCAL PHYSICIAN (PCP/Family) Primary Care Physician Scripts No Active Prescriptions or Reported Meds DELILAH BLACK MD Apr 12, 2017 09:36
[2017-04-12] MEDS ORDERED: NS IV 1000 ML 1,000 ML IV ONE (09:39)
[2017-04-12] MEDS ORDERED: KETOROLAC 30 MG/ML VIAL IVP ONE (09:45)
[2017-04-12] MEDS ORDERED: cefTRIAXone INJECTION 1,000 MG in NS (IVPB) 50 ML IV ONE (09:45)
--- NOTE | 2017-04-12 09:50 | Diagnostic Imaging Report ---
INDICATION: Followup chest x-ray with nipple markers. FINDINGS: Nipple markers were placed. The density noted overlying the mid lung on the left does correlate with the nipple marker. IMPRESSION: No evidence of parenchymal lung masses. Dictated by: Dictated on workstation # [id number]
[2017-04-12 11:25] VITALS: BP 103/71
[2017-04-12] MEDS ORDERED: CATHETER FLUSH 10 ML SYR IV PRN (11:45)
[2017-04-12] MEDS ORDERED: INFLUENZA TRIvalent 2017-2018 0.5 ML/45 MCG SYR IM ONE (12:00)
[2017-04-12] MEDS: NS IV 1000 ML 1,000 ML IV SCH ×3 (12:13→21:05)
[2017-04-12] MEDS: DOXYCYCLINE 100 MG/NS 100 ML IVPB IV SCH ×4 (12:16→23:28)
[2017-04-12] MEDS ORDERED: IBUP-30 PO (14:20)
[2017-04-12 15:49] VITALS: BP 130/77
[2017-04-12] MEDS: KETOROLAC 30 MG/ML VIAL IV PRN (17:23)
[2017-04-12 19:05] VITALS: BP 120/73
[2017-04-13] VITALS: BP_SYST 115; BP_SYST 120; BP_DIAS 67; BP_DIAS 71
[2017-04-13] MEDS: NS IV 1000 ML 1,000 ML IV SCH ×2 (05:02→12:42)
[2017-04-13] MEDS: KETOROLAC 30 MG/ML VIAL IV PRN (08:26)
[2017-04-13] MEDS: cefTRIAXone 1 GM/NS 50 ML IVPB IV SCH ×2 (08:26)
[2017-04-13 08:54] VITALS: BP 121/76
--- NOTE | 2017-04-13 09:44 | History & Physicial (CHS) ---
HPI History of Present Illness: 36YO gentleman presented to ER with complaints of increased scrotal swelling and testicular pain in the past 3 days. Patient states that his scrotal was swollen such that it was painful to walk. No fevers at home. States he was treated for an STD in January after presenting for left testicular pain. Per ER records, he was positive for gonorrhea at the time. He has again had sexual intercourse with his ex- after being treated, and he does not believe she has been treated. Today, he is clammy and sweaty. Complains of a bright red scrotum and pain when anything touches it. No other issues. Source: patient, old records Exam Limitations: no limitations Date seen by provider: Apr 13, 2017 Time Seen by Provider: 09:00 Attending Physician Angela Taylor MD PCP No,Local Physician Consult Date of Admission Apr 12, 2017 at 10:44 am Home Medications Home Medications Reviewed patient Home Medication Reconciliation Form Allergies Coded Allergies: morphine (Unverified Allergy, Mild, VOMITING, 10/11/14) FYM-Jemeay-Hhirpn Hx Patient Social History Alcohol Use: Denies Use Recreational Drug Use: Yes (METH AND POT) Drug of Choice: cannibus, methamphetamines Smoking Status: Current Everyday Smoker Type Used: Cigarettes 2nd Hand Smoke Exposure: Yes Recent Foreign Travel: No Contact w/other who traveled: No Recent Hopitalizations: No Recent Infectious Disease Expo: No Physical Abuse Screen: No Sexual Abuse: No Immunizations Up To Date Tetanus Booster (TDap): Unknown Date of Influenza Vaccine: Jan 07, 2014 Family Medical History Significant Family History: No Pertinent Family Hx Review of Systems (CHC) Constitutional: no symptoms reported Psychiatric/Neurological: See HPI Reviewed Test Results Reviewed Test Results Lab Laboratory Tests Test 04/12/17 08:05 04/12/17 08:30 04/12/17 10:35 Range/Units Urine Color YELLOW Urine Clarity CLEAR Urine pH 6 5-9 Urine Specific [place] 1.020 1.016-1.022 Urine Protein 2+ H NEGATIVE Urine Glucose (UA) 4+ H NEGATIVE Urine Ketones 1+ H NEGATIVE Urine Nitrite NEGATIVE NEGATIVE Urine Bilirubin NEGATIVE NEGATIVE Urine Urobilinogen 1 NORMAL MG/DL Urine Leukocyte Esterase 3+ H NEGATIVE Urine RBC (Auto) 2+ H NEGATIVE Urine RBC 0-2 /HPF Urine WBC >100 H /HPF Urine Crystals NONE /LPF Urine Bacteria TRACE /HPF Urine Casts NONE /LPF Urine Mucus NEGATIVE /LPF Urine Culture Indicated YES Urine Opiates Screen NEGATIVE NEGATIVE Urine Oxycodone Screen NEGATIVE NEGATIVE Urine Methadone Screen NEGATIVE NEGATIVE Urine Propoxyphene Screen NEGATIVE NEGATIVE Urine Barbiturates Screen NEGATIVE NEGATIVE Ur Tricyclic Antidepressants Screen NEGATIVE NEGATIVE Urine Phencyclidine Screen NEGATIVE NEGATIVE Urine Amphetamines Screen POSITIVE H NEGATIVE Urine Methamphetamines Screen POSITIVE H NEGATIVE Urine Benzodiazepines Screen NEGATIVE NEGATIVE Urine Cocaine Screen NEGATIVE NEGATIVE Urine Cannabinoids Screen POSITIVE H NEGATIVE Urine Chlamydia trachomatis RNA Not Detected Not Detected White Blood Count 12.7 H 4.3-11.0 10^3/uL Red Blood Count 4.79 4.35-5.85 10^6/uL Hemoglobin 15.3 13.3-17.7 G/DL Hematocrit 46 40-54 % Mean Corpuscular Volume 96 80-99 FL Mean Corpuscular Hemoglobin 32 25-34 PG Mean Corpuscular Hemoglobin Concent 33 32-36 G/DL Red Cell Distribution Width 13.5 10.0-14.5 % Platelet Count 186 130-400 10^3/uL Mean Platelet Volume 9.4 7.4-10.4 FL Neutrophils (%) (Auto) 75 42-75 % Lymphocytes (%) (Auto) 15 12-44 % Monocytes (%) (Auto) 9 0-12 % Eosinophils (%) (Auto) 0 0-10 % Basophils (%) (Auto) 0 0-10 % Neutrophils # (Auto) 9.5 H 1.8-7.8 X 10^3 Lymphocytes # (Auto) 1.9 1.0-4.0 X 10^3 Monocytes # (Auto) 1.2 H 0.0-1.0 X 10^3 Eosinophils # (Auto) 0.0 0.0-0.3 10^3/uL Basophils # (Auto) 0.0 0.0-0.1 10^3/uL Sodium Level 133 L 135-145 MMOL/L Potassium Level 4.2 3.6-5.0 MMOL/L Chloride Level 100 98-107 MMOL/L Carbon Dioxide Level 21 21-32 MMOL/L Anion Gap 12 5-14 MMOL/L Blood Urea Nitrogen 19 H 7-18 MG/DL Creatinine 1.24 0.60-1.30 MG/DL Estimat Glomerular Filtration Rate > 60 BUN/Creatinine Ratio 15 Glucose Level 149 H 70-105 MG/DL Lactic Acid Level 2.37 *H 0.65 0.50-2.00 MMOL/L Calcium Level 9.1 8.5-10.1 MG/DL Total Bilirubin 1.0 0.1-1.0 MG/DL Aspartate Amino Transf (AST/SGOT) 23 5-34 U/L Alanine Aminotransferase (ALT/SGPT) 20 0-55 U/L Alkaline Phosphatase 65 40-136 U/L C-Reactive Protein High Sensitivity 14.07 H 0.00-0.50 MG/DL Total Protein 7.3 6.4-8.2 GM/DL Albumin 4.1 3.2-4.5 GM/DL Radiology Date of Exam: 04/12/17 US SCROTUM (Testicle) [id number] Scrotal ultrasound. INDICATION: Right scrotal redness and swelling. FINDINGS: The right testicle is 4.4 x 2.7 x 3.1 cm. The left testicle is 4.5 x 2.3 x 2.5 cm. There is hyperemia and swelling in the right epididymis and moderate right hydrocele compatible with epididymitis. Scrotal wall thickening is also seen compatible with inflammation or infection extension into the subcutaneous tissues, cellulitis. No solid mass within the testicles is seen. There is an epididymal head simple cyst measuring 3.0 x 1.0 x 2.6 cm on the left. IMPRESSION: Findings compatible with right epididymitis with inflammation and soft tissue thickening extending to the scrotal wall on the right side. Moderate right hydrocele. Physical Exam-(CHC) Physical Exam Vital Signs VS - Last 72 Hours, by Label 04/12/17 04/12/17 04/12/17 04/12/17 08:05 09:51 11:20 11:25 Temp 97.5 97.5 97.5 98.0 Pulse 104 88 89 Resp 24 24 20 B/P (MAP) 128/99 (109) 103/71 (82) Pulse Ox 100 100 100 O2 Delivery Room Air 04/12/17 04/12/17 04/12/17 04/13/17 11:45 15:49 19:05 00:00 Temp 100.3 100.4 98.2 Pulse 90 92 80 Resp 20 20 18 B/P (MAP) 130/77 (94) 120/73 (89) 115/71 (86) Pulse Ox 99 98 99 O2 Delivery Room Air Room Air Room Air Room Air 04/13/17 04/13/17 08:54 10:18 Temp 100.1 97.8 Pulse 92 Resp 18 B/P (MAP) 121/76 (91) Pulse Ox 99 O2 Delivery Room Air Capillary Refill : Less Than 3 Seconds General Appearance: WD/WN, no apparent distress HEENT: PERRL/EOMI, normal ENT inspection, pharynx normal Neck: non-tender, full range of motion, supple, normal inspection Respiratory: chest non-tender, lungs clear, normal breath sounds, no respiratory distress, no accessory muscle use Cardiovascular: regular rate, rhythm, no edema, no gallop, no JVD, no murmur Gastrointestinal: normal bowel sounds, non tender, soft, no organomegaly, no pulsatile mass Genital/Rectal: tenderness, other (right scrotal swelling, erythmatous - beefy red; warm to touch) Extremities: normal range of motion, non-tender, normal inspection, no pedal edema, no calf tenderness, normal capillary refill Neurologic/Psychiatric: tube handler II-XII nml as tested, no motor/sensory deficits, alert, normal mood/affect, oriented x 3 Skin: normal color, warm/dry Clinical Quality Measures DVT/VTE Risk/Contraindication: Risk Factor Score Per Nursin RFS Level Per Nursing on Admit: 4+=Very High Copy Copies To 1: ANGELA TAYLOR MD Assessment/Plan Assessment/Plan Admission Dx SEE BELOW Plan EPIDYDIMITIS, LIKELY SECONDARY TO GONORRHEAL INFECTION HIGH RISK SEXUAL BEHAVIORS ADM - chlamydia negative, gonorrhea pending at present. will keep rocephin, dc doxy, add azithromycin 1g x1 due to severity of disease. pt to keep the scrotum elevated. we discussed transfer; with no surgical issue, no need at this point. can consult gen surg tomororw if no improvement. pt agreeable to the plan. counseled to use condoms in the future; pt's ex- also needs to be treated. METHAMPHETAMINE ABUSE ADM - will speak with patient about ATS at [facility] upon discharge. DVT PROPH: encouraged ambulation ANGELA TAYLOR MD Apr 13, 2017 9:44 am
[2017-04-13] MEDS: NICOTINE 21 MG (NICODERM) PATCH TD SCH (10:07)
[2017-04-13] MEDS: DOXYCYCLINE 100 MG/NS 100 ML IVPB IV SCH ×2 (10:07)
[2017-04-13 12:00] VITALS: BP 135/91
[2017-04-13] MEDS ORDERED: AZITHROMYCIN 250 MG TAB (ZITHROMAX) PO NR (14:00)
[2017-04-13 16:13] VITALS: BP 138/83
[2017-04-13 20:00] VITALS: BP 137/80
[2017-04-14] VITALS: BP 143/79
[2017-04-14 04:00] VITALS: BP 131/79
[2017-04-14] MEDS: KETOROLAC 30 MG/ML VIAL IV PRN (05:13)
[2017-04-14 05:33] LABS: BASOPHILS % (AUTO) 0 % (0-10); EOSINOPHILS # (AUTO) 0.1 10^3/uL (0.0-0.3); EOSINOPHILS % (AUTO) 1 % (0-10); HEMATOCRIT 46 % (40-54); HEMOGLOBIN 15.1 G/DL (13.3-17.7); LYMPHOCYTES # (AUTO) 2.1 X 10^3 (1.0-4.0); LYMPHOCYTES % (AUTO) 25 % (12-44); MEAN CORPUSCULAR HEMOGLOBIN 32 PG (25-34); MEAN CORPUSCULAR HGB CONC 33 G/DL (32-36); MEAN CORPUSCULAR VOLUME 97 FL (80-99); MEAN PLATELET VOLUME 9.6 FL (7.4-10.4); MONOCYTES # (AUTO) 0.8 X 10^3 (0.0-1.0); MONOCYTES % (AUTO) 9 % (0-12); NEUTROPHILS # (AUTO) 5.5 X 10^3 (1.8-7.8); NEUTROPHILS % (AUTO) 65 % (42-75); PLATELET COUNT 175 10^3/uL (130-400); RED CELL DISTRIBUTION WIDTH 13.5 % (10.0-14.5); WHITE BLOOD COUNT 8.5 10^3/uL (4.3-11.0)
[2017-04-14 05:57] LABS: BUN/CREATININE RATIO 12; CALCIUM 9.3 MG/DL (8.5-10.1); CARBON DIOXIDE 25 MMOL/L (21-32); CHLORIDE 105 MMOL/L (98-107); GFR ESTIMATED > 60; GLUCOSE 97 MG/DL (70-105); POTASSIUM 4.5 MMOL/L (3.6-5.0); SODIUM 142 MMOL/L (135-145)
[2017-04-14 08:07] VITALS: BP 132/76
[2017-04-14] MEDS: cefTRIAXone 1 GM/NS 50 ML IVPB IV SCH ×2 (08:25)
[2017-04-14] MEDS: NICOTINE 21 MG (NICODERM) PATCH TD SCH (08:25)
[2017-04-14] MEDS: PATCH REMOVAL TP SCH (08:26)
--- NOTE | 2017-04-14 11:04 | Progress Note (SOAP) ---
Subjective Subjective/Events-last exam Patient states that his testicle is still very swollen and tender. Tearful today talking about his drug use and dysfunctional relationship with his ex- girlfriend. States he wants help but is not wanting to do counseling. Review of Systems Date Seen by Provider: Apr 14, 2017 Time Seen by Provider: 09:00 Gastrointestinal: No: Nausea, Vomiting Objective Exam Last Set of Vital Signs Vital Signs Date Time Temp Pulse Resp B/P (MAP) Pulse Ox O2 Delivery O2 Flow Rate FiO2 04/14/17 08:07 98.0 83 18 132/76 (94) 99 Room Air Capillary Refill : Less Than 3 Seconds I&O Intake and Output 04/14/17 00:00 Intake Total 3855 ml Balance 3855 ml Intake Oral 1480 ml IV Total 2375 ml # Voids 11 General: Alert, Oriented X3, Cooperative, No Acute Distress Lungs: Clear to Auscultation, Normal Air Movement Heart: Regular Rate, Normal S1, Normal S2, No Murmurs, Gallops, Rubs Abdomen: Normal Bowel Sounds, Soft, No Tenderness, No Hepatosplenomegaly, No Masses Skin: Other (scrotum is erythematous but improved; testicle is hard and swollen , no fluctuance) Psych/Mental Status: Mental Status NL, Other (depressed affect, tearful) Results/Procedures Lab Laboratory Tests 04/14/17 05:09: White Blood Count 8.5, Red Blood Count 4.70, Hemoglobin 15.1, Hematocrit 46, Mean Corpuscular Volume 97, Mean Corpuscular Hemoglobin 32, Mean Corpuscular Hemoglobin Concent 33, Red Cell Distribution Width 13.5, Platelet Count 175, Mean Platelet Volume 9.6, Neutrophils (%) (Auto) 65, Lymphocytes (%) (Auto) 25, Monocytes (%) (Auto) 9, Eosinophils (%) (Auto) 1, Basophils (%) (Auto) 0, Neutrophils # (Auto) 5.5, Lymphocytes # (Auto) 2.1, Monocytes # (Auto) 0.8, Eosinophils # (Auto) 0.1, Basophils # (Auto) 0.0, Sodium Level 142, Potassium Level 4.5, Chloride Level 105, Carbon Dioxide Level 25, Anion Gap 12, Blood Urea Nitrogen 11, Creatinine 0.90, Estimat Glomerular Filtration Rate > 60, BUN/ Creatinine Ratio 12, Glucose Level 97, Calcium Level 9.3 Microbiology 04/12/17 Blood Culture - Preliminary, Resulted No growth 04/12/17 Urine Culture - Preliminary, Resulted NO GROWTH Radiology Date of Exam: 04/12/17 US SCROTUM (Testicle) [id number] Scrotal ultrasound. INDICATION: Right scrotal redness and swelling. FINDINGS: The right testicle is 4.4 x 2.7 x 3.1 cm. The left testicle is 4.5 x 2.3 x 2.5 cm. There is hyperemia and swelling in the right epididymis and moderate right hydrocele compatible with epididymitis. Scrotal wall thickening is also seen compatible with inflammation or infection extension into the subcutaneous tissues, cellulitis. No solid mass within the testicles is seen. There is an epididymal head simple cyst measuring 3.0 x 1.0 x 2.6 cm on the left. IMPRESSION: Findings compatible with right epididymitis with inflammation and soft tissue thickening extending to the scrotal wall on the right side. Moderate right hydrocele. Assessment/Plan Assessment/Plan Plan EPIDYDIMITIS, SECONDARY TO GONORRHEAL INFECTION HIGH RISK SEXUAL BEHAVIORS ADM - chlamydia negative, gonorrhea pending at present. will keep rocephin, dc doxy, add azithromycin 1g x1 due to severity of disease. pt to keep the scrotum elevated. we discussed transfer; with no surgical issue, no need at this point. can consult gen surg tomororw if no improvement. pt agreeable to the plan. counseled to use condoms in the future; pt's ex- also needs to be treated. 04/14 - improved. continue the rocephin for now. keep scrotum elevated. no need for transfer. pt's ex-girlfriend did seek treatment. METHAMPHETAMINE ABUSE ADM - will speak with patient about ATS at [facility] upon discharge. 04/14 - pt interested in ATS. will arrange appt with intake at discharge. DVT PROPH: encouraged ambulation DISPO: pt not established with [facility]. We have arranged a follow up appointment for 04/18 at 11am with Nina from ATS; Apr 20 at 8:[address] Taylor. Clinical Quality Measures DVT/VTE Risk/Contraindication: Risk Factor Score Per Nursin RFS Level Per Nursing on Admit: 4+=Very High ANGELA TAYLOR MD Apr 14, 2017 11:04 am
[2017-04-14 12:54] VITALS: BP 126/79
[2017-04-14 15:44] VITALS: BP 127/78
[2017-04-14 19:30] VITALS: BP 136/82
[2017-04-15] VITALS: BP 134/77
[2017-04-15 04:00] VITALS: BP 114/70
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
[2017-04-15 05:29] LABS: BASOPHILS # (AUTO) 0.1 10^3/uL (0.0-0.1); BASOPHILS % (AUTO) 1 % (0-10); EOSINOPHILS # (AUTO) 0.1 10^3/uL (0.0-0.3); EOSINOPHILS % (AUTO) 2 % (0-10); HEMATOCRIT 44 % (40-54); HEMOGLOBIN 14.5 G/DL (13.3-17.7); LYMPHOCYTES # (AUTO) 2.5 X 10^3 (1.0-4.0); LYMPHOCYTES % (AUTO) 33 % (12-44); MEAN CORPUSCULAR HEMOGLOBIN 32 PG (25-34); MEAN CORPUSCULAR HGB CONC 33 G/DL (32-36); MEAN CORPUSCULAR VOLUME 98 FL (80-99); MEAN PLATELET VOLUME 9.3 FL (7.4-10.4); MONOCYTES # (AUTO) 0.8 X 10^3 (0.0-1.0); MONOCYTES % (AUTO) 11 % (0-12); NEUTROPHILS # (AUTO) 4.1 X 10^3 (1.8-7.8); NEUTROPHILS % (AUTO) 54 % (42-75); PLATELET COUNT 222 10^3/uL (130-400); RED BLOOD COUNT 4.53 10^6/uL (4.35-5.85); RED CELL DISTRIBUTION WIDTH 13.4 % (10.0-14.5); WHITE BLOOD COUNT 7.6 10^3/uL (4.3-11.0)
[2017-04-15 05:49] LABS: BUN/CREATININE RATIO 18; CALCIUM 9.1 MG/DL (8.5-10.1); CARBON DIOXIDE 20 MMOL/L (21-32); CHLORIDE 109 MMOL/L (98-107); CREATININE SERUM 0.84 MG/DL (0.60-1.30); GFR ESTIMATED > 60; GLUCOSE 96 MG/DL (70-105); POTASSIUM 4.3 MMOL/L (3.6-5.0); SODIUM 142 MMOL/L (135-145)
[2017-04-15 08:00] VITALS: BP 106/71
[2017-04-15] MEDS: NICOTINE 21 MG (NICODERM) PATCH TD SCH (09:24)
[2017-04-15] MEDS: PATCH REMOVAL TP SCH (09:25)
[2017-04-15] MEDS: cefTRIAXone 1 GM/NS 50 ML IVPB IV SCH ×2 (09:25)
[2017-04-15 12:00] VITALS: BP 130/79
--- NOTE | 2017-04-15 12:05 | Discharge Summary ---
Diagnosis/Chief Complaint Date of Admission Apr 12, 2017 at 10:44 Date of Discharge 04/15/17 Admission Diagnosis Admission Diagnosis Sepsis Epiditimytis Gonorrhea Scrotal Cellulitis Methamphetamine Abuse Tobacco Abuse Discharge Diagnosis Sepsis Epiditimytis Gonorrhea Scrotal Cellulitis Methamphetamine Abuse Tobacco Abuse Chief Complaint/HPI Chief Complaint/HPI 36YO gentleman presented to ER with complaints of increased scrotal swelling and testicular pain in the past 3 days. Patient states that his scrotal was swollen such that it was painful to walk. No fevers at home. States he was treated for an STD in January after presenting for left testicular pain. Per ER records, he was positive for gonorrhea at the time. He has again had sexual intercourse with his ex- after being treated, and he does not believe she has been treated. Today, he is clammy and sweaty. Complains of a bright red scrotum and pain when anything touches it. No other issues. Discharge Summary-Simple/Stand Consultations Discharge Physical Examination Allergies: Coded Allergies: morphine (Unverified Allergy, Mild, VOMITING, 10/11/14) Vitals & I&Os Vital Sign - Last 12Hours Date Time Temp Pulse Resp B/P (MAP) Pulse Ox O2 Delivery O2 Flow Rate FiO2 04/15/17 08:00 98.2 60 20 106/71 (83) 98 Room Air Intake and Output 04/15/17 00:00 Intake Total 2346 ml Balance 2346 ml General Appearance: Alert, Oriented X3, Cooperative, No Acute Distress HEENT: Atraumatic, PERRLA, EOMI, Mucous Memb Moist/Mehama Respiratory: Clear to Auscultation, Normal Air Movement Cardiovascular: Regular Rate, Normal S1, Normal S2, No Murmurs Abdominal: Normal Bowel Sounds, Soft, No Tenderness, No Hepatosplenomegaly, No Masses Extremities: No Clubbing, No Cyanosis, No Edema, Normal Pulses, No Tenderness/ Swelling Skin: No Rashes, No Breakdown, Other (mild erythema and right sided scrotal swelling) Hospital Course See final discharge diagnosis. Labs Laboratory Tests 04/14/17 05:09 04/15/17 05:04 Radiology Reviewed Date of Exam: 04/12/17 US SCROTUM (Testicle) [id number] Scrotal ultrasound. INDICATION: Right scrotal redness and swelling. FINDINGS: The right testicle is 4.4 x 2.7 x 3.1 cm. The left testicle is 4.5 x 2.3 x 2.5 cm. There is hyperemia and swelling in the right epididymis and moderate right hydrocele compatible with epididymitis. Scrotal wall thickening is also seen compatible with inflammation or infection extension into the subcutaneous tissues, cellulitis. No solid mass within the testicles is seen. There is an epididymal head simple cyst measuring 3.0 x 1.0 x 2.6 cm on the left. IMPRESSION: Findings compatible with right epididymitis with inflammation and soft tissue thickening extending to the scrotal wall on the right side. Moderate right hydrocele. Discussion & Recommendations Pt admitted with right sided epiditimytis secondary to gonorrhea; this is pt's second gonorrheal infection in approximately the last six weeks. The patient is adamant that he has not had sexual contact with anyone other than his significant other. Significant other was treated yesterday in clinic. Patient received 3 days of Rocephin 1 gram, as well as 1 gram azithromycin. On the morning of discharge the patient is requesting to go home, his swelling has improved significantly, and his pain has improved. The patient was positive for methamphetamines on admission, and is interested in treatment - he has been set up with ATS at [facility] on Monday. Given the patient's overall improvement, discharge to home is reasonable. He has been treated for his gonorrhea adequately, although given that there is some resistance seen to rocephin, the patient will be discharged on PO doxycycline 100 mg BID x7 days. The patient was counseled not to have unprotected sex for the 7 days he is on antibiotics and for 7 days following completion of his treatment. He was also counseled that it would be lin for him to get tested for other STDS - HIV, Syphilis and Hepatitis - when he follows up with Dr. Taylor on 04/21 in the clinic. Discharge Condition at discharge Stable Instructions to patient/family Please see electronic discharge instructions given to patient. Discharge Medications Reviewed and agree with Discharge Medication list on patient's Discharge Instruction sheet Clinical Quality Measures DVT/VTE Risk/Contraindication: Risk Factor Score Per Nursin RFS Level Per Nursing on Admit: 4+=Very High Copy Copies To 1: ANGELA TAYLOR MD, MARGARET E DO Apr 15, 2017 12:05
[2017-04-15] MEDS ORDERED: IBUP-1773 PO (12:07)
[2017-04-15] MEDS ORDERED: DOXY100T19 PO (12:07)
--- NOTE | 2017-04-15 12:10 | Discharge Instructions ---
Discharge Inst-[facility] Discharge Medications New, Converted or Re-Newed RX: Transmitted to Pharmacy New Medications: Doxycycline Monohydrate (Doxycycline Monohydrate) 100 Mg Tablet 100 MG PO BID for 7 Days, #14 TAB 0 Refills Ibuprofen (Ibuprofen) 600 Mg Tablet 600 MG PO Q6H PRN for PAIN for 10 Days, #30 TAB 0 Refills Discontinued Medications: Ibuprofen (Advil) 200 Mg Tablet 200-400 MG PO Q6H PRN for PAIN-MILD, TAB Patient Instructions Patient Instructions Keep appointments as scheduled Goal/Follow Up Appt: Nina Mar[facility] with [facility] 04/18/17 at 11:[address] Taylor 04/20/17 at 8:30 AM Patient Instructions: -no unprotected sex while on antibiotics or for 7 days after finishing antibiotics Return to The Hospital For: -pain unrelieved by medication, fever >101 unrelieved by tylenol or ibuprofen, other emergent complaints or concerns Activity & Diet Discharge Diet: Regular Diet Activity as Tolerated: Yes Copy Copies To 1: ANGELA TAYLOR MD, MARGARET E DO Apr 15, 2017 12:10
== END 2017-04-15 12:42 | disposition home or self-care (01) | DRG 872 ==
LOC: EDUNIT# 07:21 → ER 07:23 → 4TH 10:44
PROVIDERS: ADMIT Pediatrics; ATTEND Pediatrics
DX: A41.9 Sepsis, unspecified organism (principal); N49.2 Inflammatory disorders of scrotum; A54.23 Gonococcal infection of other male genital organs; F12.90 Cannabis use, unspecified, uncomplicated; F15.90 Other stimulant use, unspecified, uncomplicated; F17.210 Nicotine dependence, cigarettes, uncomplicated; Z72.51 High risk heterosexual behavior
CPT/HCPCS: 36415; 71010; 76870; 80048; 80053; 80306; 81000; 83605; 85025; 86141; 87040; 87088; 87491; 87591; 96374; 96375

== ENCOUNTER 2021-10-11 01:34 | Emergency (ER) | payer MEDICAID, OTHER ==
[~2021-10-11] VITALS: Ht 190.5 cm; Wt 89.4 kg
[~2021-10-11 01:34] MED LIST changes: +DOXY100T31 PO; +IBUP-1773 PO; +IBUP-30 PO
[2021-10-11] MEDS ORDERED: LIDOCAINE 1% INJ 20 ML VIAL IJ STA (01:42)
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
[2021-10-11 02:12] VITALS: BP 141/95
== END 2021-10-11 02:15 ==
LOC: EDUNIT# 01:34 → ER 01:36
DX: S01.81XA Laceration without foreign body of other part of head, initial encounter (principal); F17.210 Nicotine dependence, cigarettes, uncomplicated; W18.30XA Fall on same level, unspecified, initial encounter; Y35.833A Legal intervention involving a conducted energy device, suspect injured, initial encounter
CPT/HCPCS: 12051

== ENCOUNTER 2021-10-15 20:18 | Emergency (ER) | payer SELFPAY ==
[~2021-10-15] VITALS: Ht 190.5 cm; Wt 86.0 kg
[2021-10-15 21:00] LABS: BASOPHILS # (AUTO) 0.1 10^3/uL (0.0-0.1); BASOPHILS % (AUTO) 1 % (0-10); EOSINOPHILS % (AUTO) 0 % (0-10); HEMATOCRIT 47 % (40-54); HEMOGLOBIN 16.4 g/dL (13.3-17.7); LYMPHOCYTES % (AUTO) 10 % (12-44); MEAN CORPUSCULAR HEMOGLOBIN 32 pg (25-34); MEAN CORPUSCULAR HGB CONC 35 g/dL (32-36); MEAN CORPUSCULAR VOLUME 91 fL (80-99); MEAN PLATELET VOLUME 9.4 fL (9.0-12.2); MONOCYTES # (AUTO) 1.2 10^3/uL (0.0-1.0); MONOCYTES % (AUTO) 11 % (0-12); NEUTROPHILS # (AUTO) 8.1 10^3/uL (1.8-7.8); NEUTROPHILS % (AUTO) 78 % (42-75); PLATELET COUNT 204 10^3/uL (130-400); WHITE BLOOD COUNT 10.4 10^3/uL (4.3-11.0)
[2021-10-15] MEDS ORDERED: NS IV 1000 ML 1,000 ML IV ONE (21:00)
[2021-10-15] MEDS ORDERED: IBUPROFEN 800 MG (MOTRIN) TAB PO STA (21:08)
[2021-10-15] MEDS ORDERED: ACETAMINOPHEN 500 MG TAB (TYLENOL) PO STA (21:08)
[2021-10-15 21:11] LABS: ALBUMIN 4.4 GM/DL (3.2-4.5); POTASSIUM 3.7 MMOL/L (3.6-5.0)
[2021-10-15 21:12] LABS: CALCIUM 9.7 MG/DL (8.5-10.1)
[2021-10-15 21:13] LABS: TOTAL PROTEIN 7.7 GM/DL (6.4-8.2)
[2021-10-15 21:15] LABS: BILIRUBIN,TOTAL 1.4 MG/DL (0.1-1.0)
[2021-10-15 21:17] LABS: CREATININE SERUM 1.23 MG/DL (0.60-1.30)
--- NOTE | 2021-10-15 21:18 | ED General ---
General Chief Complaint: General Problems/Pain Stated Complaint: SUTURE REMOVAL/FEVER/BILAT LEG PAIN Nursing Triage Note: PT AMB TO [facility] AND WAS A/O X3. PT STATED THAT HE HAS HAD FEVER, SWEATS, AND BODY ACHES OVER THE LAST 2 DAYS. HE STATED THAT HE HAS TAKEN TYLENOL PM FOR CHILDREN. HE STATED THAT HE TOOK HIS LAST DOSE OF TYLENOL WAS AT [facility] TODAY. HE WAS ALSO SEEN MONDAY FOR STITCHES ON HIS CHIN AND WAS SCHEDULED TODAY FOR REMOVAL. PT IS LAYING IN BED WITH 1 SIDERAIL UP, BED IN LOWEST POSITION, AND CALL LIGHT IN REACH. Source of Information: Patient Exam Limitations: No Limitations History of Present Illness Date Seen by Provider: Oct 15, 2021 Time Seen by Provider: 20:40 Initial Comments Here with report of fever, chills, body aches over the last 2 days. Also here with needing suture removal from his chin after laceration repair last Monday night early Monday morning. He is not vaccinated for COVID. He is unsure what is going on. Denies sore throat, runny nose or cough. Denies nausea, vomiting or diarrhea. Timing/Duration: 1-2 Days Severity: Moderate Associated Systoms: No Chest Pain, No Cough; Fever/Chills; No Headaches, No Loss of Appetite, No Nausea/Vomiting, No Shortness of Air; Weakness Allergies and Home Medications Allergies Coded Allergies: morphine (Unverified Allergy, Mild, VOMITING, 10/11/14) Patient Home Medication List Home Medication List Reviewed: Yes Doxycycline Monohydrate (Doxycycline Monohydrate) 100 Mg Tablet, 100 MG PO BID Prescribed by: VERÓNICA GUNTER on 04/15/17 1207 Ibuprofen (Ibuprofen) 600 Mg Tablet, 600 MG PO Q6H PRN for PAIN Prescribed by: VERÓNICA GUNTER on 04/15/17 1207 Review of Systems Review of Systems Constitutional: see HPI, chills, fever EENTM: No nose congestion, No throat pain Respiratory: No cough, No short of breath Cardiovascular: no symptoms reported Gastrointestinal: No nausea, No vomiting Genitourinary: no symptoms reported Musculoskeletal: muscle pain; No neck pain Skin: no symptoms reported Psychiatric/Neurological: Denies Headache; Weakness All Other Systems Reviewed Negative Unless Noted: Yes Past Dzjasyt-Iyrplh-Olrugz Hx Patient Social History Tobacco Use?: Yes Tobacco type used: Cigarettes Smoking Status: Current Everyday Smoker Smokeless Tobacco Frequency: Current Everyday User Substance use?: Yes Substance type: Marijuana Additional substance use comme: STATES HE USED TO USE IV METH. Substance frequency: Daily Alcohol Use?: No Pt feels they are or have been: No Immunizations Up To Date Tetanus Booster (TDap): Unknown PED Vaccines UTD: Yes Influenza Vaccine Up-to-Date: No; Not Current Seasonal Allergies Seasonal Allergies: Yes Past Medical History Surgeries: Yes Orthopedic Respiratory: No Currently Using CPAP: No Currently Using BIPAP: No Cardiac: No Neurological: No Reproductive Disorders: No Sexually Transmitted Disease: No HIV/AIDS: No Genitourinary: No Gastrointestinal: No Musculoskeletal: No Endocrine: No HEENT: No Cancer: No Psychosocial: No Integumentary: No Blood Disorders: No Family Medical History Reviewed Nursing Family Hx No Pertinent Family Hx Physical Exam Vital Signs Vital Signs - First Documented 10/15/21 20:31 Temp 38.8 Pulse 116 Resp 18 B/P (MAP) 128/93 (105) Pulse Ox 100 O2 Delivery Room Air Capillary Refill : Less Than 3 Seconds Height, Weight, BMI Height: 6'2.00" Weight: 168lbs. 0.0oz. 76.042006tr; 23.00 BMI Method:Stated General Appearance: No Apparent Distress, WD/WN HEENT: PERRL/EOMI, Pharyngeal Erythema; No Tonsillar Exudate Neck: Non Tender, Supple Respiratory: Lungs Clear, Normal Breath Sounds Cardiovascular: No Murmur, Tachycardia Gastrointestinal: Non Tender, Soft Back: Normal Inspection, No CVA Tenderness, No Vertebral Tenderness Extremity: Normal Range of Motion, Non Tender Neurologic/Psychiatric: Alert, Oriented x3 Skin: Normal Color, Warm/Dry, Other (Suture repair to area under chin is clean, dry and intact without signs and symptoms of infection or foul-smelling drainage. No significant surrounding erythema.) Focused Exam Lactate Level 10/15/21 22:10: Lactic Acid Level 0.91 Lactic Acid Level Laboratory Tests Test 10/15/21 22:10 Lactic Acid Level 0.91 MMOL/L (0.50-2.00) Procedures/Interventions Suture Size: 5-0 Progress/Results/Core Measures Suspected Sepsis SIRS Temperature: Pulse: 116 Respiratory Rate: 18 Laboratory Tests 10/15/21 20:47: White Blood Count 10.4 Blood Pressure 128 /93 Mean: 105 10/15/21 22:10: Lactic Acid Level 0.91 Laboratory Tests 10/15/21 20:47: Creatinine 1.23, Platelet Count 204, Total Bilirubin 1.4H Results/Orders Lab Results Laboratory Tests Test 10/15/21 20:47 10/15/21 20:52 10/15/21 22:10 10/15/21 22:21 Range/Units White Blood Count 10.4 4.3-11.0 10^3/uL Red Blood Count 5.12 4.30-5.52 10^6/uL Hemoglobin 16.4 13.3-17.7 g/dL Hematocrit 47 40-54 % Mean Corpuscular Volume 91 80-99 fL Mean Corpuscular Hemoglobin 32 25-34 pg Mean Corpuscular Hemoglobin Concent 35 32-36 g/dL Red Cell Distribution Width 12.9 10.0-14.5 % Platelet Count 204 130-400 10^3/uL Mean Platelet Volume 9.4 9.0-12.2 fL Immature Granulocyte % (Auto) 0 % Neutrophils (%) (Auto) 78 H 42-75 % Lymphocytes (%) (Auto) 10 L 12-44 % Monocytes (%) (Auto) 11 0-12 % Eosinophils (%) (Auto) 0 0-10 % Basophils (%) (Auto) 1 0-10 % Neutrophils # (Auto) 8.1 H 1.8-7.8 10^3/uL Lymphocytes # (Auto) 1.0 1.0-4.0 10^3/uL Monocytes # (Auto) 1.2 H 0.0-1.0 10^3/uL Eosinophils # (Auto) 0.0 0.0-0.3 10^3/uL Basophils # (Auto) 0.1 0.0-0.1 10^3/uL Immature Granulocyte # (Auto) 0.0 0.0-0.1 10^3/uL Sodium Level 135 135-145 MMOL/L Potassium Level 3.7 3.6-5.0 MMOL/L Chloride Level 102 98-107 MMOL/L Carbon Dioxide Level 17 L 21-32 MMOL/L Anion Gap 16 H 5-14 MMOL/L Blood Urea Nitrogen 19 H 7-18 MG/DL Creatinine 1.23 0.60-1.30 MG/DL Estimat Glomerular Filtration Rate 76 BUN/Creatinine Ratio 15 Glucose Level 121 H 70-105 MG/DL Calcium Level 9.7 8.5-10.1 MG/DL Corrected Calcium 9.4 8.5-10.1 MG/DL Total Bilirubin 1.4 H 0.1-1.0 MG/DL Aspartate Amino Transf (AST/SGOT) 46 H 5-34 U/L Alanine Aminotransferase (ALT/SGPT) 56 H 0-55 U/L Alkaline Phosphatase 93 40-136 U/L C-Reactive Protein High Sensitivity 13.01 H 0.00-0.50 MG/DL Total Protein 7.7 6.4-8.2 GM/DL Albumin 4.4 3.2-4.5 GM/DL Procalcitonin 0.23 H <0.10 NG/ML Influenza Type A (RT-PCR) Not Detected Not Detecte Influenza Type B (RT-PCR) Not Detected Not Detecte SARS-CoV-2 RNA (RT-PCR) Not Detected Not Detecte Urine Color YELLOW Urine Clarity CLEAR Urine pH 6.0 5-9 Urine Specific Perry 1.025 H 1.016-1.022 Urine Protein 1+ H NEGATIVE Urine Glucose (UA) NEGATIVE NEGATIVE Urine Ketones NEGATIVE NEGATIVE Urine Nitrite NEGATIVE NEGATIVE Urine Bilirubin 1+ H NEGATIVE Urine Urobilinogen >=8.0 < = 1.0 MG/DL Urine Leukocyte Esterase NEGATIVE NEGATIVE Urine RBC (Auto) TRACE-I H NEGATIVE Urine RBC 0-2 /HPF Urine WBC NONE /HPF Urine Squamous Epithelial Cells RARE /HPF Urine Crystals NONE /LPF Urine Bacteria NEGATIVE /HPF Urine Casts PRESENT /LPF Urine Hyaline Casts 0-2 H /LPF Urine Mucus LARGE H /LPF Urine Culture Indicated NO Lactic Acid Level 0.91 0.50-2.00 MMOL/L Urine Opiates Screen NEGATIVE NEGATIVE Urine Oxycodone Screen NEGATIVE NEGATIVE Urine Methadone Screen NEGATIVE NEGATIVE Urine Propoxyphene Screen NEGATIVE NEGATIVE Urine Barbiturates Screen NEGATIVE NEGATIVE Ur Tricyclic Antidepressants Screen NEGATIVE NEGATIVE Urine Phencyclidine Screen NEGATIVE NEGATIVE Urine Amphetamines Screen POSITIVE H NEGATIVE Urine Methamphetamines Screen POSITIVE H NEGATIVE Urine Benzodiazepines Screen NEGATIVE NEGATIVE Urine Cocaine Screen NEGATIVE NEGATIVE Urine Cannabinoids Screen POSITIVE H NEGATIVE My Orders Orders - WIN GUERRA MD Cbc With Automated Diff (10/15/21 20:47) Comprehensive Metabolic Panel (10/15/21 20:47) Hs C Reactive Protein (10/15/21 20:47) Procalcitonin (Pct) (10/15/21 20:47) Covid 19 Inhouse Test (10/15/21 20:47) Ed Iv/Invasive Line Start (10/15/21 20:47) Ns Iv 1000 Ml (Sodium Chloride 0.9%) (10/15/21 21:00) Influenza A And B By Pcr (10/15/21 20:47) Acetaminophen Tablet (Tylenol Tablet) (10/15/21 21:08) Ibuprofen Tablet (Motrin Tablet) (10/15/21 21:08) Ua Culture If Indicated (10/15/21 21:53) Chest 1 View, Ap/Pa Only (10/15/21 21:53) Lactic Acid Analyzer (10/15/21 21:54) Drug Screen Stat (Urine) (10/15/21 22:44) Lactated Ringers (Lr 1000 Ml Iv Solution (10/15/21 23:15) Medications Given in ED Current Medications Medications Dose Ordered Sig/Malcom Route Start Time Stop Time Status Last Admin Dose Admin Lactated Ringer's 1,000 ml @ 0 mls/hr Q0M ONCE IV 10/15/21 23:15 10/15/21 23:16 DC 10/15/21 23:23 0 MLS/HR Sodium Chloride 1,000 ml @ 0 mls/hr Q0M ONCE IV 10/15/21 21:00 10/15/21 21:01 DC 10/15/21 21:17 0 MLS/HR Vital Signs/I&O 10/15/21 20:31 Temp 38.8 Pulse 116 Resp 18 B/P (MAP) 128/93 (105) Pulse Ox 100 O2 Delivery Room Air 10/16/21 00:00 Intake Total 1000 ml Balance 1000 ml Capillary Refill : Less Than 3 Seconds Blood Pressure Mean: 105 Progress Note : Progress Note Seen and evaluated. Nurse to do suture removal. IV, labs, normal saline 1 L bolus, Tylenol 1 g p.o., ibuprofen 800 mg p.o. and COVID/influenza testing ordered. Monitor patient. 2153: We will add urine and chest x-ray to studies given elevated CRP. COVID is negative as well as influenza. Patient does have appearance of COVID. Monitor patient. 2315: Repeat fluid bolus with 1 L LR. Monitor patient. 0005: Lactic acid negative. UA negative and chest x-ray does not show any acute findings. Patient overall doing much better with heart rate in the 70s and 80s and normal blood pressure. I did discuss with him regarding methamphetamine use. He denies injecting but does admit to use. Overall findings most consistent with viral etiology given totality of circumstances. We will continue outpatient [id number] therapy with strict return precautions. Discharged home with return precautions. Patient verbalized understanding of instructions and agreement with plan. Diagnostic Imaging Diagonstic Imaging: Xray Plain Films/CT/US/NM/MRI: chest Comments [facility]. [place], [place] NAME: CAMPBELL REYNA [facility] REC#: [id number] PT STATUS: REG ER : 1980 PHYSICIAN: WIN GUERRA MD ADMIT DATE: 10/15/21/ER Signed Date of Exam:10/15/21 CHEST 1 VIEW, AP/PA ONLY EXAMINATION: Chest 1 view. HISTORY: Fever. COMPARISON: 04/12/2017. FINDINGS: The lung volumes are normal. No focal consolidation is seen. No large pleural effusion or pneumothorax is seen. The cardiomediastinal silhouette is normal in size and contour. No acute osseous abnormality is seen. IMPRESSION: No acute pleuroparenchymal process. Dictated by: Dictated on workstation # [id number] Dict: 10/15/212228 Trans: 10/15/212233 [facility] [id number] Interpreted by: LACHELLE DHALIWAL DO Electronically signed by: LACHELLE DHALIWAL DO 10/15/212233 Departure Impression Primary Impression: Fever Qualified Codes: R50.9 - Fever, unspecified Additional Impressions: Viral syndrome Visit for suture removal Dehydration Disposition: HOME, SELF-CARE Condition: Improved Departure-Patient Inst. Decision time for Depature: 00:17 Referrals: NO,LOCAL PHYSICIAN (PCP/Family) Primary Care Physician Patient Instructions: Fever, Adult ED, Viral Syndrome (DC), Dehydration, Adult ED Add. Discharge Instructions: All discharge instructions reviewed with patient and/or family. Voiced understanding. Drink plenty of fluids and get plenty of rest. You may take Tylenol/acetaminophen 1000 mg every 6-8 hours as needed for fever or pain. You may take ibuprofen 600 mg every 8 hours as needed for fever or pain. Return for persistent fever, weakness, breathing problems, difficulty with urination or other concerns as needed. WIN GUERRA MD Oct 15, 2021 21:18
[2021-10-15 22:18] LABS: CLARITY,URINE CLEAR; COLOR,URINE YELLOW; GLUCOSE, URINE (UA) NEGATIVE (NEGATIVE); KETONES,URINE NEGATIVE (NEGATIVE); LEUKOCYTE ESTERASE ,URINE NEGATIVE (NEGATIVE); NITRITE,URINE NEGATIVE (NEGATIVE); PROTEIN,URINE 1+ (NEGATIVE)
--- NOTE | 2021-10-15 22:32 | Diagnostic Imaging Report ---
EXAMINATION: Chest 1 view. HISTORY: Fever. COMPARISON: 04/12/2017. FINDINGS: The lung volumes are normal. No focal consolidation is seen. No large pleural effusion or pneumothorax is seen. The cardiomediastinal silhouette is normal in size and contour. No acute osseous abnormality is seen. IMPRESSION: No acute pleuroparenchymal process. Dictated by: Dictated on workstation # [id number]
[2021-10-15 22:33] LABS: BACTERIA,URINE NEGATIVE /HPF; BILIRUBIN,URINE 1+ (NEGATIVE); HYALINE CASTS, URINE 0-2 /LPF; RBC,URINE 0-2 /HPF; SQUAMOUS EPITHELIAL CELL,UR RARE /HPF
[2021-10-15] MEDS ORDERED: LACTATED RINGERS 1,000 ML IV ONE (23:15)
[2021-10-15 23:16] LABS: AMPHETAMINE SCREEN, URINE POSITIVE (NEGATIVE); BARBITURATE SCREEN URINE NEGATIVE (NEGATIVE); BENZODIAZEPINES SCREEN URINE NEGATIVE (NEGATIVE); CANNABINOID SCREEN, URINE POSITIVE (NEGATIVE); COCAINE SCREEN URINE NEGATIVE (NEGATIVE); METHADONE STAT NEGATIVE (NEGATIVE); OPIATE SCREEN URINE NEGATIVE (NEGATIVE); OXYCODONE STAT NEGATIVE (NEGATIVE); PROPOXYPHENE STAT NEGATIVE (NEGATIVE); TRICYCLIC ANTIDEPRESSANTS SCRE NEGATIVE (NEGATIVE)
[2021-10-16 00:32] VITALS: BP 134/67
== END 2021-10-16 00:34 | disposition home or self-care (01) ==
LOC: EDUNIT# 20:18 → ER 20:21
DX: S01.81XD Laceration without foreign body of other part of head, subsequent encounter (principal); B34.9 Viral infection, unspecified; E86.0 Dehydration; F17.210 Nicotine dependence, cigarettes, uncomplicated; F17.220 Nicotine dependence, chewing tobacco, uncomplicated; Z20.822 Contact with and (suspected) exposure to COVID-19; Z28.310 Unvaccinated for COVID-19; X58.XXXD Exposure to other specified factors, subsequent encounter
CPT/HCPCS: 36415; 71045; 80053; 80306; 81000; 83605; 84145; 85025; 86141; 87636